=== PATIENT | male | born 1950 ===

== ENCOUNTER 2024-07-18 08:59 | Outpatient (AMB) | payer MEDICAID, SELFPAY ==
[2024-07-18 09:16] VITALS: BP 125/77; PULSE 94; RESP 16; TEMP 36.8; O2SAT 91; BMI 31.9
--- NOTE | 2024-07-18 09:16 | ACNOTE_ITS ---
Vital Signs 07/18/24 09:16 Height 1.88 m Height Method Stated Weight 113.001 kg Weight Measurement Method Standing Scale BMI 31.9 BP 125/77 Blood Pressure Source Automatic Cuff Blood Pressure Location Left Upper Arm Position Sitting Respiration 16 Pulse 94 Pulse Source Monitor Temp 98.2 F Temp Source Temporal Artery Scan Pulse Oximetry (%) 91 L Oxygen Delivery Method Room Air Allergies/Meds Allergies & Medications Allergies No Known Allergies Allergy (Verified 07/18/24 09:19) Medication Reconciliation ORTHO [facility] (Std Wheelchair) #1 ea 07/18/24 [Rx] bisoprolol 2.5 mg-hydrochlorothiazide 6.25 mg tablet 1 tab PO QDAY #30 tabs 07/18/24 [Rx] clopidogrel 75 mg tablet 75 mg PO QDAY #30 tabs 07/18/24 [Rx] famotidine 20 mg tablet 20 mg PO QDAY #30 tabs 07/18/24 [Rx] fluticasone propionate 115 mcg-salmeterol 21 mcg/actuation HFA inhaler (Advair HFA) 2 puff inhalation BID #12 grams 07/18/24 [Rx] losartan 50 mg tablet 50 mg PO QDAY #30 tabs 07/18/24 [Rx] rosuvastatin 20 mg tablet 20 mg PO QDAY #30 tabs 07/18/24 [Rx] tamsulosin 0.4 mg capsule 0.4 mg PO QDAY #30 caps 07/18/24 [Rx] MA Intake Visit Data Collection New Patient or Established: Established Patient (seen at [facility] within 3 years) Seen by Clinical Staff ONLY (RN/MA): No Pain Present Currently: No Pain scale:: 0 Pain Scale Used: Angulo-Low/Numerical Mobile Patrol Officer Required: No PCP or OBGYN visit in last 3 months: No Hx Now: No Do You Feel Safe at Home: Yes Authorities Contacted: N/A Smoking Status Smoking Status: Former smoker Immunization / Flu Flu Vaccine in the Last 12 Months: No Flu Vaccine Exclusion Criteria: No Exclusion Criteria Past Medical History Social History SMOKING STATUS: Smoking status: Former smoker Patient Portal Questionaires Social History Tobacco History Smoking Status: Former smoker Domestic Abuse History Do You Feel Safe at Home: Yes Review of Systems Report any current symptoms Only answer those that you have currently: Past Medical History Past Medical History Have you ever been diagnosed with any of the following: History of Present Illness HPI Narrative This is a 73-year-old male, newly immigrated from [place]. Here to establish care. He has a past medical history of coronary artery disease with 3 stents, last stent done 2 years ago, HTN, HLD, BPH, previous GI bleed, distant hx of 15-pack tobacco smoking, and JAEL. He reports ongoing exertional dyspnea, unable to walk far distance secondary to dyspnea. Symptoms ongoing for >5 years but have gradually worsened. He was previously prescribed an inhaler with improvement in his symptoms, currently not using any inhalers. States he had lung imaging done in the past, greater than 10 years ago, showing some pulmonary disease which he cannot recall. Denies fever, chills, chest pain, wheezing, cough, fainting, syncope, LOC, abdominal pain, n/v/d/c. Reports occasional diffuse pruritic skin rashes with nodularity throughout his body. Usually occur at random places last couple days, and resolve spontaneously. He has been worked up extensively for this in the past with no abnormal findings. Currently asymptomatic. Review of Systems Review of Systems Narrative Review of Systems: GENERAL: Denies fevers/chills or diaphoresis. HEENT: Denies headache or visual/hearing changes. Denies nasal discharge. NEURO: Denies unusual weakness or difficulty speaking. CARDIO: Denies chest pain or palpitations. PULM: Exertional dyspnea. No coughing, or wheezing. GI: Denies abdominal pain, N/V/C/D/reflux/gas, bright red blood per rectum or melena. Reports having BMs. URO: Denies burning/itching/pain/urinary changes. MSK/EXT/SKIN: Denies joint/skeletal/muscle pain, issues/changes in upper or lower extremities, itchiness, or superficial pain. PSYCH: Cooperative, pleasant mood & affect. The rest of the review of systems is otherwise negative. Objective/Exam Narrative Physical exam: GENERAL * Normal-appearing adult male, NAD. HEENT * NCAT.?DONNA. Oral mucosa is moist. Patent Nares NECK * Supple, nontender, no thyromegaly, no meningismus, no JVD, no step offs CHEST * RRR, no m/g/r * CTAB, no w/r/r. Symmetrical chest rise. No intercostal subcostal retraction * Atraumatic, nontender, no crepitus, symmetrical expansion. ABDOMEN * Soft, flat, nontender. No guarding/rebound tenderness/masses. * Bowel sounds presents EXTREMITIES * No edema/cyanosis.? SKIN * Warm and dry, no jaundice/rashes. NEUROMUSCULAR * No lumbar or midline, no CVA, no paraspinal muscle spasm or tenderness. * Moves all 4 extremities well, with full ROM and good CSM. * SOUZA x4, CN II-XII grossly intact. * No focal neurologic deficits. PSYCHIATRY * Normal mood and affect, cooperative, no SI or HI or hallucinations. Assessment & Plan Diagnosis / Problem List (1) Adult general medical exam: Status: Acute Assessment & Plan: Here to establish care. Needs assistance with IHSS documentation. Reports difficulty with daily activtites secondary to dyspnea and decreased mobility. Plan: Referral to GI for colonoscopy Ordered US for AAA given HTN, age, and smoking hx Ordered CBC, CMP, Lipid, Thyroid function and A1c Ordered pneumococcal and shingles vaccine to be done at pharmacy. Return to office in 2 weeks after labs completion (2) Dyspnea: Status: Chronic Qualifiers: Dyspnea type: dyspnea on exertion Qualified Code(s): R06.09 - Other forms of dyspnea Assessment & Plan: Has chronic exertional dyspnea, worsening over the last year. Previously had workup showing pulmonary disease for which he was using an inhaler temporarily. Denies chest pain, cough, or palpitation. Lung exam CTAB without w/r/r. No cyanosis. No history of heart failure. Plan: Ordered low-dose CT given hx of tobacco smoking. Referral to pulmonology Started ADVAIR inhaler BID (3) Hypertension: Status: Chronic Qualifiers: Hypertension type: primary hypertension Qualified Code(s): I10 - Essential (primary) hypertension Assessment & Plan: Controlled with current medication. Vitals within normal limit. Plan: Continued home BISOPROLOL HYDROCHLOROTHIAZIDE 2.5?6.25 daily Continued home LOSARTAN 50 mg daily (4) Dyslipidemia: Status: Chronic Assessment & Plan: Pending lipid panel Plan: Ordered lipid panel Continued ROSUVASTATIN 20 mg daily (5) CAD (coronary artery disease): Status: Chronic Qualifiers: Coronary Disease-Associated Artery/Lesion type: unspecified vessel or lesion type Associated angina: without angina [place] vs. transplanted heart: [place] heart Qualified Code(s): I25.10 - Atherosclerotic heart disease of [place] coronary artery without angina pectoris Assessment & Plan: Has 3 stents, most recent was done 2 years [place]. Currently denies chest pain or palpitations. He would like to see Dr. Samayoa for further follow-up. Previously on ASPIRIN, discontinued secondary to GI bleed. Plan: Continue home CLOPIDOGREL 75 mg daily. Referral to cardiology, will differ ECHO for cardiology. (6) Sleep apnea: Status: Chronic Qualifiers: Sleep apnea type: unspecified type Qualified Code(s): G47.30 - Sleep apnea, unspecified Assessment & Plan: Reports daily fatigue, waking up multiple times at night gasping for air. Previously had positive sleep study. Currently not on CPAP. Plan: Order sleep study with pulmonology. (7) History of tobacco use: Status: Inactive Assessment & Plan: History of 15 pack year tobacco use. Quit greater than 10 years ago. Plan: Ordered low-dose CT scan. (8) GERD (gastroesophageal reflux disease): Status: Chronic Qualifiers: Esophagitis bleeding: without hemorrhage Assessment & Plan: On OMEPRAZOLE chronically. Will switch to FAMOTIDINE given high risk for AIN with OMEPRAZOLE. Plan: Discontinued OMEPRAZOLE Started FAMOTIDINE 20 mg daily. (9) BPH (benign prostatic hyperplasia): Status: Chronic Qualifiers: Lower urinary tract symptom presence: symptoms absent Qualified Code(s): N40.0 - Benign prostatic hyperplasia without lower urinary tract symptoms Assessment & Plan: Managed well with current medication. Currently asymptomatic. Plan: Continued home TAMSULOSIN 0.4 mg daily. Orders: Orders CBC Today Comprehensive Metabolic Panel Today Z00.00 - Encounter for general adult medical examination without abnormal findings Free T4 (Free Thyroxine) Today Z00.00 - Encounter for general adult medical examination without abnormal findings US abd aorta screen AAA Today I10 - Essential (primary) hypertension, Z72.0 - Tobacco use Prostate Specific Antigen Today N40.0 - Benign prostatic hyperplasia without lower urinary tract symptoms Lipid Panel Today E78.5 - Hyperlipidemia, unspecified, Z00.00 - Encounter for general adult medical examination without abnormal findings Thyroid Stimulating Hormone Today Z00.00 - Encounter for general adult medical examination without abnormal findings Ambulatory Hemoglobin A1C Today Z00.00 - Encounter for general adult medical examination without abnormal findings CT lung low-dose screening wo Today Z72.0 - Tobacco use Referrals Pulmonary Function Study Referral R06.00 - Dyspnea, unspecified Pulmonology G47.30 - Sleep apnea, unspecified Gastroenterology Z12.11 - Encounter for screening for malignant neoplasm of colon Cardiology I25.10 - Atherosclerotic heart disease of [place] coronary artery without angina pectoris Advanced Care Planning Advance care planning discussed with:: patient Office Procedures [facility] Level of Care Nursing/Assessment Patient Status: Initial/New Patient Nursing Assessment/Reassessment: Medication Reconciliation, Update PMH in EMR and Vital Signs Coordination of Care: Complex Care and Chronic Disease 1-5, Consent,records obtained, informed consent, Education Simp Pt/Fam and Staff clarify orders New Patient Charge New Patient Point Assignment: [id number] New Patient Point Charge: INTERNET MARKETING MANAGER Level 3 ([id number])
== END 2024-07-18 10:44 | disposition home or self-care (01) ==
PROVIDERS: Supervising Provider Internal Medicine
DX: Z00.00 Encounter for general adult medical examination without abnormal findings (principal); R06.00 Dyspnea, unspecified; I10 Essential (primary) hypertension; E78.5 Hyperlipidemia, unspecified; I25.10 Atherosclerotic heart disease of native coronary artery without angina pectoris; G47.30 Sleep apnea, unspecified; Z87.891 Personal history of nicotine dependence; K21.9 Gastro-esophageal reflux disease without esophagitis; N40.0 Benign prostatic hyperplasia without lower urinary tract symptoms
CPT/HCPCS: 99203; G0463

== ENCOUNTER 2024-08-01 09:55 | Outpatient (AMB) | payer MEDICARE, MEDICAID, SELFPAY ==
[2024-08-01 10:17] VITALS: BP 116/75; PULSE 80; RESP 18; TEMP 36.5; O2SAT 94; BMI 31.6
--- NOTE | 2024-08-01 10:17 | ACNOTE_ITS ---
Vital Signs 08/01/24 10:17 Height 1.88 m Height Method Stated Weight 111.754 kg Weight Measurement Method Standing Scale BMI 31.6 BP 116/75 Blood Pressure Source Automatic Cuff Blood Pressure Location Left Upper Arm Position Sitting Respiration 18 Pulse 80 Pulse Source Monitor Temp 97.7 F Temp Source Temporal Artery Scan Pulse Oximetry (%) 94 L Oxygen Delivery Method Room Air Allergies/Meds Allergies & Medications Allergies No Known Allergies Allergy (Verified 08/01/24 10:19) Medication Reconciliation [facility]TH[facility] [place] [facility] (Std Wheelchair) #1 ea 07/18/24 [Rx Confirmed ] bisoprolol 2.5 mg-hydrochlorothiazide 6.25 mg tablet 1 tab PO QDAY #30 tabs 07/18/24 [Rx Confirmed 08/01/24] clopidogrel 75 mg tablet 75 mg PO QDAY #30 tabs 07/18/24 [Rx Confirmed 08/01/24] famotidine 20 mg tablet 20 mg PO QDAY #30 tabs 07/18/24 [Rx Confirmed 08/01/24] rosuvastatin 20 mg tablet 20 mg PO QDAY #30 tabs 07/18/24 [Rx Confirmed 08/01/24] tamsulosin 0.4 mg capsule 0.4 mg PO QDAY #30 caps 07/18/24 [Rx Confirmed 08/01/24] fluticasone propionate 115 mcg-salmeterol 21 mcg/actuation HFA inhaler (Advair HFA) 2 puff inhalation BID #12 grams 08/01/24 [Rx] losartan 50 mg tablet 50 mg PO QDAY #30 tabs 08/01/24 [Rx] MA Intake Visit Data Collection Pain Present Currently: No Cleaner And Dyer Required: No PCP or OBGYN visit in last 3 months: Yes Smoking Status Smoking Status: Former smoker Immunization / Flu Flu Vaccine in the Last 12 Months: Yes Flu Vaccine Exclusion Criteria: Already Received Past Medical History Social History SMOKING STATUS: Smoking status: Former smoker Patient Portal Questionaires PHQ-9 PHQ-2 Over the last 2 weeks, how often have you been bothered by any of the following problems? 1. Little interest or pleasure in doing things: not at all 2. Feeling down, depressed, or hopeless: not at all Total score: 0 Depression screen completed yes Social History Tobacco History Smoking Status: Former smoker Review of Systems Report any current symptoms Only answer those that you have currently: Past Medical History Past Medical History Have you ever been diagnosed with any of the following: History of Present Illness HPI Narrative This is a 73-year-old male, newly immigrated from [place]. Here to establish care. He has a past medical history of coronary artery disease with 3 stents, last stent done 2 years ago, HTN, HLD, BPH, previous GI bleed, distant hx of 15-pack tobacco smoking, and JAEL. He reports ongoing exertional dyspnea, unable to walk far distance secondary to dyspnea. Symptoms ongoing for >5 years but have gradually worsened. He was prev iously prescribed an inhaler with improvement in his symptoms, currently not using any inhalers. States he had lung imaging done in the past, greater than 10 years ago, showing some pulmonary disease which he cannot recall. Denies fever, chills, chest pain, wheezing, cough, fainting, syncope, LOC, abdominal pain, n/v/d/c. Reports occasional diffuse pruritic skin rashes with nodularity throughout his body. Usually occur at random places last couple days, and resolve spontaneously. He has been worked up extensively for this in the past with no abnormal findings. Currently asymptomatic. 08/01/2024 In office lab follow-up. Denies new symptoms or worsening of symptoms. His insurance changed to Medicare. Physical exam benign. Awaiting appointment with cardiology with Dr. Samayoa, pulmonology, low-dose CT scan for lung cancer, PFT and abdominal aortic ultrasound. * Normal liver, renal, thyroid, lipid panel and PSA * Hgb A1c 5.9, GLUCOSE 115 * RBC 5.86, HCT 52.2, Hgb 16.9, PLT 124 Objective/Exam Narrative Physical exam: GENERAL * Normal appearing adult male, NAD HEENT * NCAT.?DONNA. Oral mucosa is moist. Patent Nares NECK * Supple, nontender, no thyromegaly, no meningismus, no JVD, no step offs CHEST * RRR, no m/g/r * CTAB, no w/r/r. Symmetrical chest rise. No intercostal subcostal retraction * Atraumatic, nontender, no crepitus, symmetrical expansion. ABDOMEN * Soft, flat, nontender. No guarding/rebound tenderness/masses. * Bowel sounds presents EXTREMITIES * No edema/cyanosis.? SKIN * Warm and dry, no jaundice/rashes. NEUROMUSCULAR * No lumbar or midline, no CVA, no paraspinal muscle spasm or tenderness. * Moves all 4 extremities well, with full ROM and good CSM. * SOUZA x4, CN II-XII grossly intact. * No focal neurologic deficits. PSYCHIATRY * Normal mood and affect, cooperative, no SI or HI or hallucinations. Assessment & Plan Diagnosis / Problem List (1) Dyspnea: Status: Chronic Qualifiers: Dyspnea type: dyspnea on exertion Qualified Code(s): R06.09 - Other forms of dyspnea Assessment & Plan: Has chronic exertional dyspnea, worsening over the last year. Previously had workup showing pulmonary disease for which he was using an inhaler temporarily. Denies chest pain, cough, or palpitation. Lung exam CTAB without w/r/r. No cyanosis. No history of heart failure. Symptoms better with ADVAIR. Plan: Pending low-dose CT given hx of tobacco smoking. Pending referral to pulmonology Continue ADVAIR inhaler BID (2) Hypertension: Status: Chronic Qualifiers: Hypertension type: primary hypertension Qualified Code(s): I10 - Essential (primary) hypertension Assessment & Plan: Controlled with current medication. Vitals within normal limit. Plan: Continued home BISOPROLOL HYDROCHLOROTHIAZIDE 2.5?6.25 daily Continued home LOSARTAN 50 mg daily (3) Dyslipidemia: Status: Chronic Assessment & Plan: 07/23/24, cholesterol 124, TG 97, LDL 65, HDL 41 Plan: Continued ROSUVASTATIN 20 mg daily (4) CAD (coronary artery disease): Status: Chronic Qualifiers: Associated angina: without angina Coronary Disease-Associated Artery/Lesion type: unspecified vessel or lesion type [place] vs. transplanted heart: [place] heart Qualified Code(s): I25.10 - Atherosclerotic heart disease of [place] coronary artery without angina pectoris Assessment & Plan: Has 3 stents, most recent was done 2 [place]. Currently denies chest pain or palpitations. He would like to see Dr. Samayoa for further follow-up. Previously on ASPIRIN, discontinued secondary to GI bleed. Plan: Continue home CLOPIDOGREL 75 mg daily. Pending referral to cardiology, will differ ECHO for cardiology. (5) Sleep apnea: Status: Chronic Qualifiers: Sleep apnea type: unspecified type Qualified Code(s): G47.30 - Sleep apnea, unspecified Assessment & Plan: Reports daily fatigue, waking up multiple times at night gasping for air. Previously had positive sleep study. Currently not on CPAP. Plan: Pending sleep study with pulmonology. (6) History of tobacco use: Status: Inactive Assessment & Plan: History of 15 pack year tobacco use. Quit greater than 10 years ago. Plan: Pending low-dose CT scan. (7) GERD (gastroesophageal reflux disease): Status: Chronic Qualifiers: Esophagitis bleeding: without hemorrhage Assessment & Plan: On OMEPRAZOLE chronically. Will switch to FAMOTIDINE given high risk for AIN with OMEPRAZOLE. Plan: Continue FAMOTIDINE 20 mg daily. (8) Adult general medical exam: Status: Acute Assessment & Plan: 07/23/2024 Labs Normal liver, renal, thyroid, lipid panel and PSA Hgb A1c 5.9, GLUCOSE 115 RBC 5.86, HCT 52.2, Hgb 16.9, PLT 124 pneumococcal and shingles vaccine done 07/23/2024 Plan: Follow up in 3 months (9) BPH (benign prostatic hyperplasia): Status: Chronic Qualifiers: Lower urinary tract symptom presence: symptoms absent Qualified Code(s): N40.0 - Benign prostatic hyperplasia without lower urinary tract symptoms Assessment & Plan: Managed well with current medication. Currently asymptomatic. Plan: Continued home TAMSULOSIN 0.4 mg daily. Orders: Referrals Cardiology Additional Assessment Internal Medicine Attending Note: Case discussed with and agree with note and management plan of Resident Physician as per Resident's Note above. Issues of concern for present visit are as follows: Follow-up visit. Labs reviewed today. Note made of glucose of 115, with hemoglobin A1c at upper limit of normal at 5.9. Hemoglobin 16.9, hematocrit 52.2. Awaiting appointment with cardiology, pulmonary function testing, ultrasound for screening for abdominal aortic aneurysm, and low-dose CT scan for lung cancer screening. Dyspnea symptoms better with Advair which we will continue. Continue current antihypertensive regimen. Other issues as noted above. Sherman Domingo MD Advanced Care Planning Advance care planning discussed with:: patient Physician Billing Established Patient Established Patient: E/M Level 3-CPT 21257 Office Procedures [facility] Level of Care Nursing/Assessment Patient Status: Established Patient Nursing Assessment/Reassessment: Medication Reconciliation, Update PMH in EMR and Vital Signs Coordination of Care: Complex Care and Chronic Disease 1-5, Education Complex Pt/Fam, Consent,records obtained, informed consent, Results/Orders obtained and Staff clarify orders Established Patient Charge Established Patient Point Assignment: 95 Established Patient Point Charge: EP Level 3 (80-115) Review of Systems Const Details: GENERAL: Denies fevers/chills or diaphoresis. HEENT: Denies headache or visual/hearing changes. Denies nasal discharge. NEURO: Denies unusual weakness or difficulty speaking. CARDIO: Denies chest pain or palpitations. PULM: Exertional dyspnea, cough. GI: Denies abdominal pain, N/V/C/D/reflux/gas, bright red blood per rectum or melena. Reports having BMs. URO: Denies burning/itching/pain/urinary changes. MSK/EXT/SKIN: Denies joint/skeletal/muscle pain, issues/changes in upper or lower extremities, itchiness, or superficial pain. PSYCH: Cooperative, pleasant mood & affect. The rest of the review of systems is otherwise negative.
== END 2024-08-01 10:37 | disposition home or self-care (01) ==
LOC: HODAHC 09:55
PROVIDERS: Supervising Provider Internal Medicine
DX: Z71.2 Person consulting for explanation of examination or test findings (principal); R06.00 Dyspnea, unspecified; I10 Essential (primary) hypertension; I25.10 Atherosclerotic heart disease of native coronary artery without angina pectoris; E78.5 Hyperlipidemia, unspecified; G47.30 Sleep apnea, unspecified; Z87.891 Personal history of nicotine dependence; K21.9 Gastro-esophageal reflux disease without esophagitis; N40.0 Benign prostatic hyperplasia without lower urinary tract symptoms
CPT/HCPCS: 99213; G0463

== ENCOUNTER 2024-09-13 10:36 | Day surgery (SDC) | payer MEDICARE, MEDICAID, SELFPAY ==
--- NOTE | 2024-09-12 11:16 | EKG_ITS ---
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
[2024-09-12 14:05] VITALS: BMI 30.9
[2024-09-12 14:05] LABS: Basophils # (Auto) 0.1 Thou/mm3 (0.0-0.2); Basophils % (Auto) 1 % (0-2.5); Eosinophils # (Auto) 0.4 Thou/mm3 (0.0-0.5); Eosinophils % (Auto) 4 % (0-10); Hematocrit 46.5 % (41.0-53.0); Hemoglobin 16.2 g/dL (13.5-16.0); Immature Granulocytes % (Auto) 0 % (0-0); Immature Granulocytes Auto 0.04 Thou/mm3 (0.00-0.00); Lymphocytes # (Auto) 2.2 Thou/mm3 (1.0-4.8); Lymphocytes % (Auto) 24 % (10-50); Mean Corpuscular HGB Conc 34.8 g/dl (31.0-37.0); Mean Corpuscular Hemoglobin 28.7 pg (25.0-35.0); Mean Corpuscular Volume 82 fL (80-100); Monocytes # (Auto) 1.1 Thou/mm3 (0.0-0.8); Monocytes % (Auto) 12 % (0-12); Neutrophils # (Auto) 5.7 Thou/mm3 (1.8-7.7); Neutrophils % (Auto) 60 % (37-80); Nucleated Red Blood Cell % 0 /100 WBC (0); Platelet Count 142 Thou/mm3 (140-440); Red Blood Count 5.64 Miln/mm3 (4.50-5.90); White Blood Count 9.5 Thou/mm3 (3.8-10.6)
[2024-09-12 14:12] LABS: Prothrombin Time 11.3 Seconds (9.0-12.2)
[2024-09-12 14:20] LABS: Anion Gap 7 (7-16); BUN/Creatinine Ratio 16 Ratio (12-20); Blood Urea Nitrogen 19 mg/dL (9-23); Carbon Dioxide 27.1 mMol/L (20.0-31.0); Chloride 106 mMol/L (98-107); Creatinine (Component) 1.2 mg/dL (0.6-1.3); Estimated Creatinine Clearance 71.1 mL/min (>60); Glucose 113 mg/dL (74-106); Osmolality,Calculated 282 (275-295); Potassium 4.3 mMol/L (3.4-5.1); Sodium 140 mMol/L (136-145); eGFR > 60 See Note
[2024-09-13] VITALS (12 sets, daily range): BP systolic 110–144; BP diastolic 69–85; PULSE 56–69; RESP 13–18; TEMP 36.4–36.8; O2SAT 92–96; BMI 31.0
--- NOTE | 2024-09-13 18:55 | ESOP_ITS ---
RE: JONE MERAZ : 1950 DATE OF OPERATION: 09/13/2024 PROCEDURE PERFORMED: 1. Diagnostic left heart cardiac catheterization, selective coronary angiogram, and left ventricular angiogram, CPT 85476. 2. Conscious sedation, 30 minute duration. 3. Ultrasound-guided access right radial artery. DIAGNOSES: Coronary artery disease status post multivessel stent placement. Question of unstable angina. HISTORY AND INDICATIONS: The patient is a 74-year-old [place] speaking male with a history of hypertension, hypercholesterolemia, CAD, stent placement of multiple vessels in 2014 while he was in [place], doing fairly well until recently. He has had recurrent shortness of breath, chest pressure and unstable angina, hence coronary angiography is recommended. So the patient is a candidate for cardiovascular intervention. DESCRIPTION OF PROCEDURE: The patient was brought to the cardiac catheterization laboratory. He was given 2 mg of Versed and 50 mcg of fentanyl for conscious sedation. Right radial artery cannulated by micropuncture technique. A 6-[place] Glidesheath was induced and radial cocktail was given consisting of heparin, nitroglycerin, and verapamil. A 5-[place]ghan TIG 4 diagnostic catheter was used to perform right and left selective coronary angiogram. Left heart catheterization and LV angiogram was performed by TIG 4 diagnostic catheter as well. The patient tolerated the procedure well. No complications. Cardiac catheterization showed following findings: HEMODYNAMICS: Left ventricular pressure is 110/12. Aortic pressure 120/80. No gradient across the aortic valve. Left ventricular angiogram showed normal left ventricular wall motion with an ejection fraction of 30%. Coronary angiogram showed following findings: Right coronary artery showed some calcification. It is large and dominant, gives posterior descending artery, posterolateral branches. Proximal right coronary artery show mild occlusive pseudo-plaque, 20% narrowing and there is mild plaque in the distal segment, no significant stenosis. Left coronary system, left main coronary artery showed calcification. Not sure whether there are any stents, but is widely patent. No significant stenosis. There is mild atherosclerotic plaque and calcification proximal LAD is detected. In the mid segment of the stent, there is evidence of a possible 30-40% narrowing in the mid left anterior descending artery, but definitely less than 50% stenosis. There is also some calcification of the vessel. No stents were visible within the left anterior descending artery. The left circumflex artery is nondominant and gives off obtuse marginal branch, appears normal. There is also ramus intermedius, which appears to have a stent, which is widely patent. SUMMARY OF FINDINGS: 1. 30-40% stenosis in the mid left anterior descending artery, not significant for intervention. 2. Widely patent stent involving ramus intermedius. 3. Normal left ventricular function. Ejection fraction 70%. 4. Calcification of left main coronary artery. No significant stenosis. RECOMMENDATIONS: Continue medical management. Prognosis is fair in the absence of significant obstructive coronary artery disease. He does have mild to moderate stenosis of the proximal mid left anterior descending artery, not significant enough to warrant intervention at this time. If he has persistent angina pectoris, we might consider doing FFR or IVUS examination in future. DT: 17:52:32 TT: 18:54:00 Ref: [id number] - TID: [id number]
== END 2024-09-13 15:20 | disposition home or self-care (01) ==
PROVIDERS: PCP Family Medicine; Referring Provider Internal Medicine Cardiovascular Disease; Visit Provider Internal Medicine Cardiovascular Disease
PROC: (CPT 93458; principal; 2024-09-13 11:30)
DX: I25.110 Atherosclerotic heart disease of native coronary artery with unstable angina pectoris (principal); E78.00 Pure hypercholesterolemia, unspecified; I10 Essential (primary) hypertension; Z01.810 Encounter for preprocedural cardiovascular examination
CPT/HCPCS: 93458; 36415; 80048; 85025; 85610; 85730; 93005; 99152; 99153; A4649; C1769; C1887; C1894; J0461; J1643; J2250; J2310; J2371; J3010; J3490; J2305